=== PATIENT | female | born 1965 | race Caucasian/White ===

== ENCOUNTER 2017-04-14 15:27 | Outpatient (CLI) | payer OTHER ==
--- NOTE | 2017-04-15 11:46 | DEXA Report ---
DEXA SCAN: 04/14/2017 CLINICAL INDICATION: Postmenopausal. TECHNIQUE: Dual energy x-ray absorptiometry (DXA) was performed on a [employer] system. Regions measured are the AP spine, femoral neck, and, if needed, forearm. COMPARISON: None. In accordance with the International Society for Clinical Densitometry (ISCD) guidelines, data from previous exams may be reanalyzed using current recommendations and techniques. This is done to allow a more accurate basis for comparison with the current study. FINDINGS The data for the lumbar spine is as follows: REGION BMD (g/cm/cm) T-SCORE Z-SCORE L1 0.923 -1.7 -1.1 L2 0.977 -1.9 -1.2 L3 1.036 -1.4 -0.7 L4 0.959 -2.0 -1.4 TOTAL 0.976 -1.7 -1.1 NOTE: All evaluable vertebrae are used for classification. The data for the hip is as follows: REGION BMD (g/cm/cm) T-SCORE Z-SCORE Neck 0.862 -1.3 -0.3 TOTAL 0.820 -1.5 -0.9 NOTE: The femoral neck or total proximal femur, whichever is lowest, is used for classification. IMPRESSION THE WHO CLASSIFICATION BASED ON THE INTERNATIONAL REFERENCE STANDARD IS OSTEOPENIA. THE FRACTURE RISK IS INCREASED. RECOMMENDATION: Patients with diagnosis of osteoporosis or osteopenia should have regular bone mineral density assessment. For those eligible for Medicare, routine testing is allowed once every 2 years. Testing frequency can be increased for patients who have rapidly progressing disease or for those who are receiving medical therapy to restore bone mass. COMMENT: World Health Organization (WHO) definitions for osteoporosis and osteopenia: NORMAL BMD: T-score at 1.0 or higher, fracture risk is low. OSTEOPENIA BMD: T-score between 1.0 and -2.5, fracture risk is increased. OSTEOPOROSIS BMD: T-score at 2.5 or lower, fracture risk high. National Osteoporosis Foundation recommends: 1. Obtain adequate dietary calcium (at least 1200 mg per day) and vitamin D (400 -800 international units per day). 2. Participate, as appropriate, in regular weightbearing and muscle- strengthening exercise. 3. Avoid tobacco use and reduce alcohol and caffeine intake. 4. For more detailed information see the website at www.NOF.org. TD: 04/15/2017 09:13 NIKOLAY
== END 2017-04-14 15:28 | disposition home or self-care (01) ==
LOC: DI 15:27
PROVIDERS: ATTEND Physician Assistant
DX: Z13.820 Encounter for screening for osteoporosis (principal); E28.319 Asymptomatic premature menopause; M85.89 Other specified disorders of bone density and structure, multiple sites
CPT/HCPCS: 77080

== ENCOUNTER 2023-09-23 07:00 | Outpatient (CLI) | payer OTHER ==
--- NOTE | 2023-09-23 09:48 | XRAY Report ---
PROCEDURE: Lumbar Spine 4V INDICATIONS: LUMBAR BACK PAIN/RADICULOPATHY TECHNIQUE: 3 views of the lumbar spine were acquired. COMPARISON: DEXA 04/14/2017. CT report 06/07/2011. FINDINGS: Surgical change: Arthrodesis of the sacroiliac joints. Bones: 6 [id number] vertebrae are present, with partial sacralization of L5. Slight leftward cu rvature of the spine, centered at L4 and L3. Age-indeterminate compression deformities of the L4 and L1 vertebral bodies. Mild disc height loss at all levels. Diffuse facet arthrosis. Soft tissues: Overlying bowel gas pattern is normal. No suspicious soft tissue calcifications. IMPRESSION: Age-indeterminate compression deformities of the L1 and L4 vertebral bodies, new since 2018. Reviewed by: Elver Oates MD on 09/23/2023 9:47 AM PDT Approved by: Elver Oates MD on 09/23/2023 9:47 AM PDT Station ID: [id number]
== END 2023-09-23 23:59 | disposition home or self-care (01) ==
LOC: DI.S 07:00
PROVIDERS: ATTEND Physician Assistant Medical
DX: M48.56XA Collapsed vertebra, not elsewhere classified, lumbar region, initial encounter for fracture (principal); M47.26 Other spondylosis with radiculopathy, lumbar region

== ENCOUNTER 2023-11-17 13:48 | Outpatient (CLI) | payer OTHER ==
--- NOTE | 2023-11-17 17:08 | DEXA Report ---
PROCEDURE: Dexa Spine and/or Hip INDICATIONS: POST MENOPAUSAL TECHNIQUE: Dual energy x-ray absorptiometry (DXA) was performed on a [employer] System. Regions measur ed are the AP Spine, femoral neck, and if needed forearm. COMPARISON: 04/14/2017 FINDINGS: Lumbar Spine: Bone Mineral Density: 1.1-0 g/cm/cm,T score: -0.5. Since the most recent prior study, there has been a statistically significant increase in bone mineral density by 15 percent. Left Femoral Neck: Bone Mineral Density: 0.748 g/cm/cm, T score: -2.1. Left Hip: Bone Mineral Density: 0.71 g/cm/cm,T score: -1.8. Since the most recent prior study, there has been a statistically significant decrease in bone mineral density by 4.8 percent. (T score greater or equal to -1.0: NORMAL) (T score from -1.1 to -2.4: OSTEOPENIA) (T score less than or equal to -2.5 to: OSTEOPOROSIS) Impression: By WHO criteria, this patient has low bone density (osteopenia). Interval statistical decrease in bone mineral density of the lumbar spine. Interval statistical decre ase in bone mineral density of the hip. Patients with diagnosis of osteoporosis or osteopenia should have regular bone mineral density assess ment. For those eligible for Medicare, routine testing is allowed once every 2 years. Testing frequ ency can be increased for patients who have rapidly progressing disease or for those who are receivin g medical therapy to restore bone mass. Reviewed by: Elver Oates MD on 11/17/2023 5:07 PM PDT Approved by: Elver Oates MD on 11/17/2023 5:07 PM PDT Station ID: [id number]
== END 2023-11-17 13:49 | disposition home or self-care (01) ==
LOC: DI 13:48
PROVIDERS: ATTEND Physician Assistant Medical
DX: M85.89 Other specified disorders of bone density and structure, multiple sites (principal); Z78.0 Asymptomatic menopausal state